=== PATIENT | female | born 1965 | race Caucasian/White ===

== ENCOUNTER → 2017-08-06 | Outpatient (CLI) | payer OTHER ==
--- NOTE | 2017-08-06 19:22 | REP ---
Clinical: Pain/injury. Technique: AP, lateral, bilateral oblique views of the right wrist. Findings: Age-related changes are appreciated including increased sclerosis to the radial surface with associated joint space narrowing. No acute fracture dislocation. No subcutaneous emphysema or radiodense foreign body. Impression: Mild age-related degenerative changes. No acute fracture or dislocation. Signed by Eric Schaeffer MD 08/06/2017 07:13 P
--- NOTE | 2017-08-06 19:24 | REP ---
Clinical: Trauma. Technique: AP, lateral, bilateral oblique views right hand . Findings: The osseous structures and joint spaces are intact and normal. There is no evidence for acute fracture or dislocation. Surrounding soft tissues are unremarkable. No subcutaneous emphysema or radiodense foreign body. Impression: Age appropriate right hand series . No acute fracture or dislocation. Signed by Eric Schaeffer MD 08/06/2017 07:15 P
--- NOTE | 2017-08-06 19:24 | REP ---
Clinical: Trauma. Technique: AP and lateral views of the right forearm. Findings: No acute fracture dislocation. Skeletal structures, joint spaces, and surrounding soft tissues are normal. Subcutaneous emphysema or radiodense foreign body. Impression: No acute fracture or dislocation. Signed by Eric Schaeffer MD 08/06/2017 07:15 P
== END ==
LOC: M LRY 18:33
PROVIDERS: ATTEND Nurse Practitioner Family
DX: S69.91XA Unspecified injury of right wrist, hand and finger(s), initial encounter (principal); S59.911A Unspecified injury of right forearm, initial encounter; X58.XXXA Exposure to other specified factors, initial encounter; Y92.89 Other specified places as the place of occurrence of the external cause; Y93.89 Activity, other specified; Y99.8 Other external cause status
CPT/HCPCS: 73090; 73110; 73130; G0463

== ENCOUNTER → 2018-01-13 | Outpatient (REF) | payer OTHER | LOC: M SFHCLERA 10:27 | DX: R10.9 Unspecified abdominal pain (principal) | CPT/HCPCS: 87086 ==

== ENCOUNTER → 2024-06-02 | Outpatient (CLI) | payer OTHER | LOC: M WUC 13:23 | PROVIDERS: ATTEND Nurse Practitioner Family | DX: R05.9 Cough, unspecified (principal) ==